=== PATIENT | male | born 1985 | race Caucasian/White ===

== ENCOUNTER 2022-06-23 14:32 | Outpatient (CLI) | payer OTHER ==
--- NOTE | 2022-06-23 12:15 | Sleep Patient Instructions ---
Sleep Center Visit Summary - Patient Visit Information Reason for Visit: Initial consult with patient established on CPAP therapy. - Patient Instructions Additional Instructions: You were here for follow up of CPAP therapy. You will be continued on CPAP therapy with pressure at 15-20 cmH2O. You should follow up with sleep care in 1-2 months. You may contact us sooner for any questions or concerns. - Clinic Information Contact: [facility] [address] [place] [id number] [email or web address] T: [phone]
--- NOTE | 2022-06-23 15:58 | SLEEP CARE CONSULTATION ---
Information from patient questionnaire entered by Ramona Claire. I have reviewed and concur with the information entered by Ramona Claire. This document represents the service I personally performed and the decisions made by me, Raine Resendez ARNP. History of Present Illness Service Date and Time: 06/23/2022 1432 Reason for Visit: New patient, Previously diagnosed sleep apnea, sleep apnea on CPAP therapy Accompanied by: Mother Chief Complaint: reports: Excessive daytime sleepiness, Fatigue, Other (UPDATE SUPPLIES) Date of Onset: 5-10YRS Usual bedtime: 10PM Snores at night: No Observed to quit breathing while asleep: No Sleeps alone due to snoring: No Reasons for waking at night: reports: Other (UNKOWN) Recalls having dreams: Yes Usually gets out of bed at: 9AM Feels refreshed in the morning: No Sleepy or fatigued during the day: Yes Takes day naps: No Prior sleep studies: Yes ([facility] 01/2021) Additional HPI information: SRIKANTH GAINES was previously diagnosed to have very severe, AHI 68.1, obstructive sleep apnea-hypopnea syndrome as seen in sleep study in [address] [facility] and comes in today with mother to establish care for CPAP therapy. 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 She helps with his history and treatment. - Parasomnia Symptoms Walks in sleep: No Talks in sleep: No Problems with memory or concentration: Yes CPAP Compliance Data - Data Reviewed with Patient Average duration of nightly device use: 51 minutes Compliance rate %: 0 (2/30 days used) Current pressure setting (cmH2O): 5-15 (95th 14.9, max 15.0) Average residual AHI: 30.2 Central apnea: 0 Obstructive apnea: 28.0 Average large leak: 0.6 Compliance data discussion: He has a ResMed Airsense 11. He is using a nasal pillows mask, Resmed AirFit P30i. He gets his supplies from [employer]. Subjective Missed days of use due to: reports: mask issues (mask causing skin irritation) Patient concerns: reports: mask discomfort, other (skin irritation, bleeding). denies: aerophagia, air blowing in eyes, mask leak noise, condensation in mask/hose, nasal congestion, dry mouth, nose, throat, epistaxis Observed to snore while using device: No Current pressure setting perceived as: comfortable On therapy, patient: reports: sleeping better, being more awake and alert during the day, other (less naps and sleeping less when using his CPAP) Initial [place] Sleepiness Scale score: 6 (05/11/22) Past Medical History Past Medical History: reports: Hypothyroidism, Anxiety, Asthma (mild intermit tent), GERD (when he was younger but no longer having symptoms), Other (OCD, BEHAVIOR PROBLEMS, GLUTEN INTOLERANCE, DOWN SYNDROME, ) Social History The patient's occupation is a DISABLED. Patient is Single and lives in [place]. Have you smoked in the past 12 months: No Alcohol use: No Caffeine use: Yes Caffeine amount and frequency: 1 CUP EACH MORNING Family History Family history of sleep disordered breathing: No Allergies and Home Medications Known drug allergies: No Drug allergies reviewed: Yes Home medication list reviewed: Yes Allergy and home medication list: Medications: Levothyroxine Prozac Risperodone Melatonin Albuterol inhaler, prn Review of Systems Weight gain over past 5 years: 5-10 Cardiovascular: reports: have to sleep sitting up. denies: high blood pressure Respiratory: reports: wheeze Gastrointestinal: reports: difficulty swallowing Neurological: denies: headaches Psychiatric: reports: anxiety Ear/Nose/Throat: reports: nose bleeds. denies: tonsillectomy Endocrine: reports: thyroid disease, sluggishness, too hot or cold Immunologic: reports: allergies to food or environment Physical Exam Vital signs obtained and entered by: RAMONA Walsh MA Blood Pressure: 126/68 (LEFT ARM) Cuff size: regular Heart Rate: 65 O2 Saturation: 97 Height: 5 ft 4.5 in Weight: 193 lb 12.8 oz Body Mass Index: 32.7 BMI Classification: Obese Neck circumference: 16.5 Heart: regular rate and rhythm Lungs: clear bilaterally Impression and Plan 1. Obstructive Sleep Apnea-Hypopnea Syndrome, very severe, with poor treatment compliance and poor apnea control with elevated residual AHI. On CPAP therapy, the patient appears to sleep less and is more awake during the day. He stopped using the CPAP because the mask caused skin irritation on the bottom of his nose. He is refusing to wear the mask where he used to use it regularly. I fitted him with a [employer] nasal cushion, small headgear and small cushion. He said if felt good and his mother will encourage him to try wearing the mask tonight. The patients pressure will be changed to autoCPAP 15-20 cmH20 for elevation of residual AHI. Patient's mother advised to contact me if pressure change appears to be uncomfortable so that it can be adjusted. Goals for apnea control discussed. Patient's apnea severity and rationale for treatment to reduce apnea, improve sleep quality and reduce cardiovascular and cerebrovascular events was reviewed. I also reviewed the benefit of consistent device use of CPAP for anxiety. 2. Obesity, unspecified. Currently patients BMI is 32.7. Obesity increases the risk of apnea, CPAP pressure requirements and overall health risks especially cardiovascular and diabetes. Thus patient is advised to lose weight. * Mask change to [employer]wear nasal cushion mask * Change auto CPAP pressure to 15-20 cmH2O * Update supplies * Notify me if snoring with mask or feeling that the pressure is too much or too little * Attempt to lose weight * Call this office if any problems using CPAP * Return for follow up in 1-2 months, or sooner if concerns arise Mask provided: Yes Counseling Topics: Spare mask, Weight loss health impact Visit Type: In Office Other Participants: Other (Mother) Time Spent with Patient (minutes): 35 Provider Statement: I spent 100% of the Face to Face Visit with the patient with greater than 50% spent counseling the patient and coordination of care.
[2022-06-23 16:15] VITALS: BP 126/68
== END 2022-06-23 14:33 | disposition home or self-care (01) ==
LOC: SC 14:32
PROVIDERS: ATTEND Nurse Practitioner Family
DX: G47.33 Obstructive sleep apnea (adult) (pediatric) (principal); E66.9 Obesity, unspecified; Z68.32 Body mass index [BMI] 32.0-32.9, adult
CPT/HCPCS: 99203; 99212

== ENCOUNTER 2022-09-01 14:30 | Outpatient (CLI) | payer OTHER ==
--- NOTE | 2022-09-01 14:28 | SLEEP CARE CONSULTATION ---
Information from patient questionnaire entered by Ramona Claire. I have reviewed and concur with the information entered by Ramona Claire. This document represents the service I personally performed and the decisions made by me, Raine Resendez ARNP. History of Present Illness Service Date and Time: 09/01/2022 1340 Previous diagnosis: Very Severe, Obstructive Sleep Apnea-Hypopnea Syndrome AHI: 68.1 Reason for follow up: other (2 MONTH F/U ) Accompanied by: Mother Equipment type: CPAP (RESMED Airsense 11, s/u 04/2021) Equipment obtained from: [employer] (getting supplies) Mask style: Nasal Mask brand: Respironics (Dreamwear) Backup mask available: Yes (old mask) Prior sleep studies: Yes ([facility] 01/2021) HPI additional information: SRIKANTH OSHEA was diagnosed to have very severe, AHI 68.1, obstructive sleep apnea-hypopnea syndrome and returns via video telehealth visit today with mother, Radha Oshea, for CPAP therapy 2 month follow-up. Sleep Study - Results Prior sleep studies: Yes ([facility] 01/2021) Subjective Missed days of use due to: reports: illness (aspiration pneumonia; unable to get him to used since) Initial [place] Sleepiness Scale score: 6 Current [place] Sleepiness Scale score: 10 Allergies and Home Medications Known drug allergies: No Drug allergies reviewed: Yes Home medication list reviewed: Yes (no changes) Allergy and home medication list: Allergies No Known Drug Allergies Allergy (Verified 08/31/22 13:39) Review of Systems Review of systems same as previous: No (aspiration x 2; pneumonia, bronchoscopy) Physical Exam Vital signs obtained and entered by: RAMONA Walsh MA Height: 5 ft 4.5 in Weight: 190 lb Body Mass Index: 32.1 BMI Classification: Obese Impression and Plan 1. Obstructive Sleep Apnea-Hypopnea Syndrome, very severe, with poor treatment compliance and fair apnea control with elevated residual AHI. His mother accompanies him to help with communication and history. She states that he aspirated a peanut early in June, had a bronchoscopy and was hospitalized. Just as he was improving he was given a chocolate with macadamia nut to eat and he aspirated again. He was taken to hospital again and was admitted for pneumonia. He has been being treated and is improving but he is refusing to use the CPAP. He is sleeping in his recliner with head elevated. Patient's apnea severity and rationale for treatment to reduce apnea, improve sleep quality and reduce cardiovascular and cerebrovascular events was reviewed. I also reviewed the benefit of consistent device use of CPAP for anxiety. 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 She was informed that he would have to qualify for this type of therapy. A referral is needed for an ENT specialist who would evaluate if Inspire therapy is indeed right for them. Qualifications to be evaluated for Inspire therapy include a previous diagnosis of moderate to severe obstructive sleep apnea. They must also have tried, failed or have been unable to tolerate CPAP treatment. They should also have a BMI of 32 or less and do not have any other active implantable devices present (like a pacemaker). Patient will need to undergo a sleep endoscopy where they are put under light sedation and the airway is examined. If it is determined that Inspire therapy is right for them than they may proceed to im plantation as advised by ENT specialist. Mother is still very interested in this and will ask the analysis internship their opinion when they follow up with them later this month. She will call us with decision. 2. Obesity, unspecified. Currently patients BMI is 32.1. Obesity increases the risk of apnea, CPAP pressure requirements and overall health risks especially cardiovascular and diabetes. Thus patient is advised to lose weight. * Continue auto CPAP pressure at 15-20 cmH2O * Referral for Inspire therapy consult discussed * Notify me if snoring with mask or feeling that the pressure is too much or too little * Attempt to lose weight * Call this office if any problems using CPAP * Return for follow up in 3 months, or sooner if concerns arise Visit Type: Telehealth Phone Video Type: Doximity Patient Location: Home Other Participants: Other (Mother) Location of Provider: Office Patient agrees and consents to this telehealth visit type: Yes Patient agrees to have their insurance billed: Yes Time Spent with Patient (minutes): 20 Provider Statement: I spent 100% of the Telehealth Phone Call with the patient with greater than 50% spent counseling the patient and coordination of care.
== END 2022-09-01 14:31 | disposition home or self-care (01) ==
LOC: SC 14:30
PROVIDERS: ATTEND Nurse Practitioner Family
DX: G47.33 Obstructive sleep apnea (adult) (pediatric) (principal); E66.9 Obesity, unspecified; Z68.32 Body mass index [BMI] 32.0-32.9, adult